=== PATIENT | male | born 1965 | race American Indian/Alaskan Native ===

== ENCOUNTER 2021-08-16 10:34 | Emergency (ER) | payer OTHER ==
[2021-08-16] MEDS ORDERED: SODIUM CHLORIDE 0.9% 1000 ML 1,000 ML IV ONE (12:26)
[2021-08-16 13:49] LABS: Basophils # (Auto) 0.1 K/mm3 (0.0-0.1); Basophils % (Auto) 0.9 % (0.0-1.8); Eosinophils # (Auto) 0.2 K/mm3 (0.0-0.4); Eosinophils % (Auto) 1.8 % (0.0-4.3); Hematocrit 47.4 % (35.5-45.6); Lymphocytes # (Auto) 2.6 K/mm3 (1.2-5.4); Lymphocytes % (Auto) 28.3 % (13.4-35.0); Mean Corpuscular HGB Conc 34 % (32-34); Mean Corpuscular Volume 87 fl (84-94); Monocytes # (Auto) 0.7 K/mm3 (0.0-0.8); Monocytes % (Auto) 7.8 % (0.0-7.3); Platelet Count 308 K/mm3 (140-440); Red Blood Count 5.48 M/mm3 (3.65-5.03)
[2021-08-16 14:12] LABS: Alanine Aminotransferase 18 units/L (7-56); Albumin 4.5 g/dL (3.9-5); BUN/Creatinine Ratio 7; Blood Urea Nitrogen 8 mg/dL (9-20); Calcium 10.6 mg/dL (8.4-10.2); Hemolysis Index 14
--- NOTE | 2021-08-16 14:27 | Emergency Department Report ---
ED Alcohol HPI - General Chief Complaint: Alcohol Stated Complaint: DETOX Time Seen by Provider: 08/16/21 12:22 Source: patient Mode of arrival: Ambulatory Limitations: No Limitations - History of Present Illness Initial Comments: Asking for detox from drugs and ETOH , has been to detox before takes etoh and cocaine , no signs of withdrowal, has been drinking since 2019 Complaint: alcohol intoxication, medical clearance for det Chronic Alcohol Use: Yes Previous Visits for Alcohol Intoxication?: Yes Recent Trauma: No Associated Symptoms: denies other symptoms Treatments Prior to Arrival: none - Related Data Allergies Allergy/AdvReac Type Severity Reaction Status Date / Time No Known Allergies Allergy Unverified 08/16/21 12:03 ED Review of Systems ROS: Stated complaint: DETOX Other details as noted in HPI Constitutional: denies: chills, fever Eyes: denies: eye pain, eye discharge, vision change ENT: denies: ear pain, throat pain Respiratory: denies: cough, shortness of breath, wheezing Cardiovascular: denies: chest pain, palpitations Endocrine: no symptoms reported Gastrointestinal: denies: abdominal pain, nausea, diarrhea Genitourinary: denies: urgency, dysuria Musculoskeletal: denies: back pain, joint swelling, arthralgia Skin: denies: rash, lesions Neurological: denies: headache, weakness, paresthesias Psychiatric: denies: anxiety, depression Hematological/Lymphatic: denies: easy bleeding, easy bruising ED Past Medical Hx - Past Medical History Previous Medical History?: Yes Hx Psychiatric Treatment: Yes (Tx for drugs and ETOH) - Surgical History Past Surgical History?: No ED Physical Exam - General Limitations: No Limitations General appearance: alert, in no apparent distress - Head Head exam: Present: atraumatic, normocephalic - Eye Eye exam: Present: normal appearance - ENT ENT exam: Present: mucous membranes moist - Neck Neck exam: Present: normal inspection - Respiratory Respiratory exam: Present: normal lung sounds bilaterally. Absent: respiratory distress - Cardiovascular Cardiovascular Exam: Present: regular rate, normal rhythm. Absent: systolic murmur, diastolic murmur, rubs, gallop - GI/Abdominal GI/Abdominal exam: Present: soft, normal bowel sounds - Rectal Rectal exam: Present: deferred - Extremities Exam Extremities exam: Present: normal inspection - Back Exam Back exam: Present: normal inspection - Neurological Exam Neurological exam: Present: alert, oriented X3 - Psychiatric Psychiatric exam: Present: normal affect, normal mood - Skin Skin exam: Present: warm, dry, intact, normal color. Absent: rash ED Course Vital Signs 08/16/21 12:07 Temperature 98.1 F Pulse Rate 70 Respiratory 20 Rate Blood Pressure 137/85 [Right] O2 Sat by Pulse 97 Oximetry - Reevaluation(s) Reevaluation #1: 08/16/21 14:25 work up negative was referred to OP detox vss no distress ED Medical Decision Making - Lab Data Result diagrams: 08/16/21 13:34 08/16/21 13:34 Critical care attestation.: If time is entered above; I have spent that time in minutes in the direct care of this critically ill patient, excluding procedure time. ED Disposition Clinical Impression: Alcohol abuse Disposition: 01 HOME / SELF CARE / HOMELESS Is pt being admited?: No Does the pt Need Aspirin: No Condition: Stable Instructions: Alcohol Use Disorder Referrals: PRIMARY CARE, [Primary Care Provider] - 3-5 Days
[2021-08-16 14:44] VITALS: BP 142/91
--- NOTE | 2021-08-17 10:03 | Electrocardiograph Report ---
[facility] Test Date: 2021-08-16 Test Time: 12:52:50 Pat Name: MOHIT PEDRAZA Department: Room: Gender: M Patient Representative: MOHIT : 1965 Requested By: TREV ROWELL Order Number: [id number] Reading MD: Lucas Schneider Measurements Intervals [employer] Rate: 67 P: 56 WA: 161 QRS: -16 QRSD: 87 T: -3 QT: 402 QTc: 426 Interpretive Statements Sinus rhythm No previous ECG available for comparison Electronically Signed On 08-17-2021 10:02:45 EST by Lucas Schneider
== END 2021-08-16 14:44 | disposition home or self-care (01) ==
LOC: ED 10:34
DX: F10.10 Alcohol abuse, uncomplicated (principal); Z79.899 Other long term (current) drug therapy; Y90.9 Presence of alcohol in blood, level not specified
CPT/HCPCS: 36415; 80053; 80320; 85025; 93005; 93010; 96360; 99283; G0480